=== PATIENT | female | born 1995 | race Caucasian/White ===

== ENCOUNTER 2016-08-03 18:57 | Emergency (ER) | payer OTHER ==
[~2016-08-03] VITALS: Ht 167.6 cm; Wt 79.4 kg
--- OUTSIDE RECORDS SUMMARY | 2016-08-03 19:05 | XMS REPORT | Continuity of Care Document ---
Author Author Anitha Welsh Address Unknown Phone Unavailable Care Team Providers Care Special Officer Automat Name Role Phone [employer] Unavailable Unavailable Problems Problem Status Onset Date Classification Date Reported Comments Source Constipation (disorder) 03/2017 Diagnosis 06/11/2016 [facility] Right lower quadrant pain (finding) 06/07/2016 Diagnosis 06/11/2016 [facility] Dysfunction of eustachian tube (disorder) 02/01/2016 Diagnosis 02/05/2016 [facility] Migraine (disorder) 2015 Diagnosis 10/18/2015 [facility] Anxiety (finding) 2015 Diagnosis 08/10/2015 [facility] Well adult (finding) 2014 Diagnosis 04/25/2015 [facility] Gastroesophageal reflux disease (disorder) 03/24/2015 Diagnosis 03/28/2015 [facility] Right upper quadrant pain (finding) 03/24/2015 Diagnosis 03/28/2015 [facility] Chronic constipation (disorder) 03/24/2015 Diagnosis 05/2014 [email or web address] Constipation, unspecified Diagnosis 09/27/2014 [facility] Abdominal pain, unspecified site 09/23/2014 Diagnosis 07/2014 [email or web address] Other malaise and fatigue Diagnosis 08/04/2014 [facility] Wheezing 07/31/2014 Diagnosis 08/04/2014 [facility] Acute upper respiratory infections of unspecified site 07/03/2014 Diagnosis 07/07/2014 [facility] Other personal history of diseases of digestive system 07/03/2014 Diagnosis 07/07/2014 [facility] Pain in limb 10/10/2013 Diagnosis 10/14/2013 [facility] Cellulitis and abscess of unspecified sites 10/10/2013 Diagnosis 10/14/2013 [facility] No data available for this section Problem 06/11/2016 [facility], [facility] [email or web address] Nausea (finding) Diagnosis 06/11/2016 [facility] Medications Medication Details Route Status Patient Instructions Ordering Provider Order Date Source No Known Medications No known medications Active [facility] Allergies, Adverse Reactions, Alerts Substance Category Reaction Severity Reaction type Status Date Reported Comments Source NKA Assertion Drug allergy [facility], [facility], [employer] Immunizations Immunization Date Given Site Status Last Updated Comments Source influenza, injectable, quadrivalent 03/24/2015 Left Deltoid influenza virus vaccine [place] [facility], [facility], [facility] meningococcal MCV4P 08/16/2012 Left Deltoid meningococcal conjugate vaccine Taiwowejennifer [facility], [facility], [email or web address] No data available for this section No data available for this section [facility], [facility], [facility], [facility] Results Vital Signs Encounters Location Location Details Encounter Type Encounter Number Reason For Visit Attending Provider ADM Date DC Date Status Source [facility] CD:[id number] Clinic ( Outpatient) [id number] Ivette Kinza 05/09/2013 Active [facility] CD:[id number] Clinic ( Outpatient) [id number] Ivette Echols 05/09/2013 Active [facility] [id number] Outpatient [id number] Jason Germain 05/22/2013 05/22/2013 Active [facility] [id number] Clinic ( Outpatient) [id number] [facility]/10/[id number]/10[id number] Germain 07/03/2014 07/04/2014 [facility] [id number] Ivette Echols 07/31/2014 08/01/2014 [facility] [id number] Outpatient [id number] Ivette Echols 08/07/2014 08/07/2014 Active [facility] Cancel /No Show [id number] . [facility] 08/07/2014 08/06/2014 [facility] [id number] Outpatient [id number] Serena Landon 09/23/2014 09/23/2014 Active [facility] [id number] Serena Landon 09/23/2014 [email or web address] [id number] . [facility] 03/24/2015 03/25/2015 [facility] [id number] Serena Landon 03/24/2015 [email or web address] [id number] Outpatient [id number] Serena Landon 04/21/2015 04/21/2015 Active [facility] CD:[id number] Clinic ( Outpatient) [id number] Ivette Echols 04/21/2015 Active [facility] [id number] Ivette Echols 04/21/2015 04/22/2015 [facility] [id number] Outpatient [id number] Serena Landon 05/18/2015 05/18/2015 Active [facility] Cancel /No Show [id number] Ivette Echols 05/24/2015 05/24/2015 [facility] [id number] Ivette Echols 08/06/2015 08/07/2015 [facility] [id number] Ivette Echols 10/14/2015 10/15/2015 [facility] [id number] Ivette Echols 02/01/2016 02/02/2016 [facility] [id number] Outpatient [id number] Mak Haji 06/07/2016 06/07/2016 Active [facility] [id number] Mak Haji 06/07/2016 06/08/2016 [facility] Procedures Procedure Code Date Perfomer Comments Source No data available for this section [facility] Plan of Care Social History Assessment and Plan Family History Value Date Source Advance Directives Order Name Results Value Date Source
[2016-08-03] MEDS ORDERED: ETHI1TAB21 PO (20:40)
[2016-08-03] MEDS ORDERED: NS IV 1000 ML 1,000 ML IV ONE ×2 (20:44→21:44)
[2016-08-03] MEDS ORDERED: NS IV 1000 ML 1,000 ML ONE (20:45)
[2016-08-03] MEDS ORDERED: ONDANSETRON 4 MG/2 ML (SDV) Z0FRAN ONE (21:15)
[2016-08-03 21:21] LABS: BASOPHILS % (AUTO) 0 % (0-10); EOSINOPHILS # (AUTO) 0.2 10^3/uL (0.0-0.3); EOSINOPHILS % (AUTO) 2 % (0-10); LYMPHOCYTES % (AUTO) 33 % (12-44); MEAN CORPUSCULAR HEMOGLOBIN 31 PG (25-34); MEAN CORPUSCULAR HGB CONC 35 G/DL (32-36); MEAN CORPUSCULAR VOLUME 89 FL (80-99); MEAN PLATELET VOLUME 10.4 FL (7.4-10.4); MONOCYTES # (AUTO) 0.7 X 10^3 (0.0-1.0); MONOCYTES % (AUTO) 8 % (0-12); NEUTROPHILS # (AUTO) 5.1 X 10^3 (1.8-7.8); NEUTROPHILS % (AUTO) 56 % (42-75); PLATELET COUNT 292 10^3/uL (130-400); RED BLOOD COUNT 4.45 10^6/uL (4.35-5.85); RED CELL DISTRIBUTION WIDTH 11.8 % (10.0-14.5)
[2016-08-03 21:24] LABS: PROTHROMBIN TIME PATIENT 13.3 SEC (12.2-14.7)
[2016-08-03] MEDS ORDERED: KETOROLAC 30 MG/ML VIAL IVP ONE (21:30)
[2016-08-03] MEDS ORDERED: cefTRIAXone INJECTION 1,000 MG in NS (IVPB) 50 ML IV ONE (21:30)
[2016-08-03] MEDS ORDERED: ONDANSETRON 4 MG/2 ML (SDV) Z0FRAN IVP ONE (21:30)
[2016-08-03 21:35] LABS: ANION GAP 13 MMOL/L (5-14); BLOOD UREA NITROGEN 10 MG/DL (7-18); BUN/CREATININE RATIO 12; CALCIUM 9.3 MG/DL (8.5-10.1); CARBON DIOXIDE 22 MMOL/L (21-32); CHLORIDE 107 MMOL/L (98-107); CREATININE SERUM 0.81 MG/DL (0.60-1.30); GFR ESTIMATED > 60; GLUCOSE 93 MG/DL (70-105); POTASSIUM 3.3 MMOL/L (3.6-5.0); SODIUM 142 MMOL/L (135-145)
--- NOTE | 2016-08-03 21:54 | ED GU-Female ---
General Chief Complaint: -Female Stated Complaint: VAGINAL BLEEDING,CRAMPING Nursing Triage Note: pt reports has had her period x2 weeks. pt reports it has been worse today. pt reports she is having clots and is going through 1 pad/tampon and hour. Pt reports she called her HAND ICER today and was advised to take 3 BCP and 2 tomorrow. Pt also reports being lightheaded. Nursing Sepsis Screen: No Definite Risk Source: patient History of Present Illness Time seen by provider: 20:45 Initial Comments C/O VAGINAL BLEEDING X 2 WEEKS PERIOD STARTED AT NORMAL TIME, JUST HAS NOT STOPPED. NOW IS PASSING CLOTS AND HAVING CRAMPING. NO HISTORY OF SIMILAR HAD A NORMAL PERIOD LAST MONTH. HAS BEEN DIZZY TODAY. PT HAS GONE THROUGH APPROXIMATELY 10 MAXI PADS TODAY. PT HAS HAD NAUSEA AND VOMITING ALL WEEK, BUT NO VOMITING TODAY. NO DIARRHEA NO FEVER NO URINARY SYMPTOMS. CALLED HER HAND ICER IN THIS AM AND WAS INSTRUCTED TO TAKE 3 CONTROL PILLS TODAY, THEN 2 TOMORROW, THEN 1 A DAY PT TOOK THE 3 PILLS TONIGHT PRIOR TO ARRIVAL. PCP: PT IS [employer] STUDENT. HAS PCP IN [place], [place]. AND HAND ICER IN Allergies and Home Medications Allergies Coded Allergies: No Known Drug Allergies (Unverified , 08/03/16) Home Medications Ethinyl Estradiol/Drospirenone 1 Each Tablet 1 EACH PO DAILY (Reported) Constitutional: see HPI dizziness EENTM: no symptoms reported Respiratory: no symptoms reported Cardiovascular: no symptoms reported Gastrointestinal: see HPI abdominal pain nausea vomiting Genitourinary: see HPI : No LMP: Jul 19, 2016 Musculoskeletal: no symptoms reported Skin: no symptoms reported Psychiatric/Neurological: No Symptoms ReportedDenies Headache Endocrine: No Symptoms Reported Hematologic/Lymphatic: See HPI Past Thfufya-Isedgn-Bquwtv Hx Patient Social History Alcohol Use: Occasionally Uses Recreational Drug Use: No Smoking Status: Never a Smoker Recent Foreign Travel: No Contact w/Someone Who Travel: No Recent Infectious Disease Expo: No Recent Hopitalizations: No Immunizations Up To Date PED Vaccines UTD: Yes Seasonal Allergies Seasonal Allergies: No Surgeries HX Surgeries: Yes (UMBILICAL HERNIA REPAIR; CHEST TUBE) Respiratory Hx Respiratory Disorders: Yes (CHEST TUBE) Cardiovascular Hx Cardiac Disorders: No Neurological Hx Neurological Disorders: No Reproductive System : No Hx : 0 Hx Reproductive Disorders: No Female Reproductive Disorders: Denies Genitourinary Hx Genitourinary Disorders: No Gastrointestinal Hx Gastrointestinal Disorders: Yes (ANTIBIOTIC-INDUCED C.DIFFICILE WITH TOXIC MEGACOLON, PANCREATITIS, SEPSIS, ? PLEURAL EFFUSION ? WITH CHEST TUBE PLACEMENT 2009--HOSPITALIZED X 1 MONTH) Gastrointestinal Disorders: Pancreatitis, C-Diff Musculoskeletal Hx Musculoskeletal Disorders: No Endocrine Hx Endocrine Disorders: No HEENT HX ENT Disorders: No Cancer Hx Cancer: No Psychosocial Hx Psychiatric Problems: No Integumentary HX Skin/Integumentary Disorder: No Blood Transfusions Hx Blood Disorders: No Adverse Reaction to a Blood Tr: No Physical Exam Vital Signs Vital Sign - Last 12Hours 08/03/16 20:30 Temp 96.4 Pulse 84 Resp 18 B/P 126/74 Pulse Ox 97 Capillary Refill : Less Than 3 Seconds General Appearance: WD/WN no apparent distress HEENT: PERRL/EOMINo pale conjunctivae (R), No pale conjunctivae (L) Neck: normal inspection Cardiovascular: regular rate, rhythm no murmur Respiratory: normal breath sounds no respiratory distress no accessory muscle use Gastrointestinal: normal bowel sounds soft no organomegaly no pulsatile mass tenderness (MILD SUPRAPUBIC TENDERNESS) Back: no CVA tenderness Extremities: normal inspection Neurologic/Psychiatric: sand technician II-XII nml as tested no motor/sensory deficits alert normal mood/affect oriented x 3 Skin: normal color warm/dry Progress/Results/Core Measures Results/Orders Lab Results Laboratory Tests Test 08/03/16 21:00 Range/Units Activated Partial Thromboplast Time 25 24-35 SEC Anion Gap 13 5-14 MMOL/L BUN/Creatinine Ratio 12 Basophils # (Auto) 0.0 0.0-0.1 10^3/uL Basophils (%) (Auto) 0 0-10 % Blood Urea Nitrogen 10 7-18 MG/DL Calcium Level 9.3 8.5-10.1 MG/DL Carbon Dioxide Level 22 21-32 MMOL/L Chloride Level 107 98-107 MMOL/L Creatinine 0.81 0.60-1.30 MG/DL Eosinophils # (Auto) 0.2 0.0-0.3 10^3/uL Eosinophils (%) (Auto) 2 0-10 % Estimat Glomerular Filtration Rate > 60 Glucose Level 93 70-105 MG/DL Hematocrit 40 35-52 % Hemoglobin 13.7 11.5-16.0 G/DL INR Comment 1.0 0.8-1.4 Lymphocytes # (Auto) 3.0 1.0-4.0 X 10^3 Lymphocytes (%) (Auto) 33 12-44 % Mean Corpuscular Hemoglobin 31 25-34 PG Mean Corpuscular Hemoglobin Concent 35 32-36 G/DL Mean Corpuscular Volume 89 80-99 FL Mean Platelet Volume 10.4 7.4-10.4 FL Monocytes # (Auto) 0.7 0.0-1.0 X 10^3 Monocytes (%) (Auto) 8 0-12 % Neutrophils # (Auto) 5.1 1.8-7.8 X 10^3 Neutrophils (%) (Auto) 56 42-75 % Platelet Count 292 130-400 10^3/uL Potassium Level 3.3 L 3.6-5.0 MMOL/L Prothrombin Time 13.3 12.2-14.7 SEC Red Blood Count 4.45 4.35-5.85 10^6/uL Red Cell Distribution Width 11.8 10.0-14.5 % Serum Test, Qualitative NEGATIVE NEGATIVE Sodium Level 142 135-145 MMOL/L White Blood Count 9.0 4.3-11.0 10^3/uL My Orders Orders-ERNO TAVERAS DO Saline Lock/Iv-Start (08/03/16 20:44) Basic Metabolic Panel (08/03/16 20:44) Cbc With Automated Diff (08/03/16 20:44) Hcg,Qualitative Serum (08/03/16 20:44) Protime With Inr (08/03/16 20:44) Partial Thromboplastin Time (08/03/16 20:44) Orthostatic Vital Signs (08/03/16 20:44) Saline Lock/Iv-Start (08/03/16 20:44) Ns Iv 1000 Ml (Sodium Chloride 0.9%) (08/03/16 20:44) Ns Iv 1000 Ml (Sodium Chloride 0.9%) (08/03/16 20:45) Ondansetron Injection (Zofran Injectio (08/03/16 21:30) Ondansetron Injection (Zofran Injectio (08/03/16 21:15) Saline Lock/Iv-Start (08/03/16 21:44) Ns Iv 1000 Ml (Sodium Chloride 0.9%) (08/03/16 21:44) Rx-Ondansetron Po (Rx-Zofran Po) (08/03/16 22:44) Orthostatic Vital Signs (08/03/16 22:44) Medications Given in ED Current Medications Medications Dose Ordered Sig/Heather Route Start Time Stop Time Status Last Admin Dose Admin Ondansetron HCl 4 mg 4 mg ONCE ONCE IVP 08/03/16 21:30 08/03/16 21:31 DC 08/03/16 21:28 4 MG Sodium Chloride 1,000 ml @ 0 mls/hr Q0M ONCE IV 08/03/16 20:44 08/03/16 20:47 DC 08/03/16 20:50 0 MLS/HR Sodium Chloride 1,000 ml @ 0 mls/hr Q0M ONCE IV 08/03/16 21:44 08/03/16 21:45 DC 08/03/16 22:10 0 MLS/HR Vital Signs/I&O Vital Sign - Last 12Hours 08/03/16 08/03/16 08/03/16 08/03/16 20:30 21:06 22:50 23:08 Temp 96.4 98.6 Pulse 84 83 92 88 75 85 156 91 Resp 18 18 B/P 126/74 Pulse Ox 97 98 Blood Pressure Mean: 91 Progress Note : Progress Note NAUSEA AND DIZZINESS IMPROVED WITH FLUIDS AND MEDICATIONS BP UP WITH FLUIDS AND ORTHOSTATICS IMPROVED--INITIALLY HAD + ORTHOSTATICS ON ARRIVAL. PT STATES SHE FEELS LIKE THE BLEEDING HAS SLOWED DOWN. PT IS STILL ON SAME PAD THAT SHE STARTED ON AT HOME PRIOR TO ARRIVAL. CRAMPING IS GONE AT DISMISSAL. Departure Impression Impression: Primary Impression: Menorrhagia Additional Impression: Volume depletion due to hemorrhage Disposition: 01 HOME, SELF-CARE Condition: Improved Departure-Patient Inst. Referrals: NO,LOCAL PHYSICIAN (PCP) Primary Care Physician MICHAEL MOLINA MD Patient Instructions: IRREGULAR VAGINAL BLEEDING, Menstrual Cramps (DC) Add. Discharge Instructions: LOTS OF FLUIDS--ENOUGH SO YOU ARE URINATING EVERY 2 HOURS WHILE AWAKE TAKE YOUR CONTROL PILLS ADVISED BY YOUR LETTUCE CUTTER FOLLOW UP WITH [facility] TOMORROW FOR FURTHER CARE All discharge instructions reviewed with patient and/or family. Voiced understanding. ERON TAVERAS DO Aug 03, 2016 21:54
[2016-08-03] MEDS ORDERED: RX-ONDANSETRON 4 MG ODT (ZOFRAN) PPK #4 PO STA (22:44)
[2016-08-03 23:08] VITALS: BP 119/73
== END 2016-08-03 23:08 | disposition home or self-care (01) ==
LOC: ER 19:00
DX: N92.0 Excessive and frequent menstruation with regular cycle (principal); E86.9 Volume depletion, unspecified
CPT/HCPCS: 36415; 80048; 84703; 85025; 85610; 85730; 96361; 96374